=== PATIENT | male | born 1980 | race African-American/Black ===

== ENCOUNTER 2017-01-26 06:27 | Day surgery (SDC) | payer OTHER ==
--- NOTE | ~2017-01-26 | OP ---
Record Of Operation [facility] [address] [place]. [address] NAME: AGUSTÍN ROMAN II : 82 STATUS : [place] [facility] [place] [id number] AGE: 36 ADM/REG DATE : 01/26/17 MR#: [id number] REPORT SERV DATE: 01/26/17 DICTATED BY: TERRANCE SY DATE: 01/26/17 REPORT STATUS : Draft TRANSCRIBED BY: LEON DATE: 01/26/17 DATE OF PROCEDURE: 01/26/2017 PREOPERATIVE DIAGNOSIS: Left-side L4-5 and L5-S1 disk herniation, lumbar radiculopathy. POSTOPERATIVE DIAGNOSIS: Left-side L4-5 and L5-S1 disk herniation, lumbar radiculopathy. PROCEDURE: Left L4-5 and L5-S1 microdiskectomy, decompression of left L4 to S1 nerve roots, minimal access spine technology, intraoperative O-arm CT scan with computer navigation. ANESTHESIA: General. ESTIMATED BLOOD LOSS: 10 mL. COMPLICATIONS: None. INDICATIONS: The patient is a pleasant 36-year-old, with intractable left leg pain, who failed multiple attempts to conservative treatment. After discussion of risks and benefits, he elected to proceed with surgery. PROCEDURE IN DETAIL: I identified the patient in the holding area, consent was obtained, went to the operating room, underwent general anesthesia with endotracheal intubation, prepped and draped in the usual sterile fashion, operative safety pause was performed, and then we proceeded. O-arm registration was placed in the iliac crest. O-arm was brought in for intraoperative CT scan. Computer registration materials were verified. Under computer guidance, a left longitudinal incision was made over the L4 to S1 level and taken down through the fascial layer. Tube dilators were used to minimally invasively dissect down through the left L4-5 interspace. Operative microscope was brought in. A shahnaz was used to perform a laminotomy. Floyd performed a foraminotomy. Disk was incised and free disk material removed with pituitary. This was repeated again at the L5-S1 level. The L4 to S1 nerve roots were identified and free of compression. Irrigation was performed. Hemostasis was achieved. 40 mg of Depo-Medrol was injected over the nerve roots. Sterile dressings were applied. The patient was awoken, extubated, and taken to the recovery room in stable condition. OPERATIVE FINDINGS: Left L4 to S1 disk herniation with stenosis. VANDANA/LEON Terrance Sy DO / [id number] Record Of [facility] [address] [address] NAME: KOFFI ROMANLEY KEYN II : 82 STATUS : [place] [facility] [place]#: [id number] AGE: 36 ADM/REG DATE : 01/26/17 MR#: [id number] REPORT SERV DATE: 01/26/17 DICTATED BY: TERRANCE SY DATE: 01/26/17 REPORT STATUS : Draft TRANSCRIBED BY: LEON DATE: 01/26/17 CC: Terrance Sy DO
[~2017-01-26 06:27] MED LIST: MOBIC7.5; VENTOLIN HFA INH
== END 2017-01-26 17:41 | disposition home or self-care (01) ==
LOC: SDC 06:27
PROVIDERS: Orthopaedic Surgery
PROC: 01NB0ZZ Release Lumbar Nerve, Open Approach (ICD-10-PCS; 2017-01-26)
PROC: 0SB20ZZ Excision of Lumbar Vertebral Disc, Open Approach (ICD-10-PCS; principal; 2017-01-26 07:30)
DX: M51.16 Intervertebral disc disorders with radiculopathy, lumbar region (principal); J45.909 Unspecified asthma, uncomplicated; Z79.1 Long term (current) use of non-steroidal anti-inflammatories (NSAID); Z90.13 Acquired absence of bilateral breasts and nipples; Z98.890 Other specified postprocedural states
CPT/HCPCS: 82962; 88304; 88311; A9270-GY; J0690; J1030; J2250; J2405; J2710; J3010